=== PATIENT | male | born 1970 | race Caucasian/White ===

== ENCOUNTER 2021-01-02 08:34 | Emergency (ER) | payer SELFPAY ==
[~2021-01-02] VITALS: Ht 182.9 cm; Wt 75.0 kg
[2021-01-02] MEDS ORDERED: OLANZAPINE 10 MG/VIAL IM STA (08:43)
[2021-01-02 10:48] LABS: BASOPHILS % 0.2 % (0.0-2.0); HEMATOCRIT. 37.6 % (42.0-52.0); HEMOGLOBIN. 12.4 g/dL (14.0-18.0); LYMPHOCYTES % 7.3 % (20.0-50.0); MEAN CORPUSCULAR HEMOGLOBIN 26.3 pg (28.0-32.0); MEAN CORPUSCULAR VOLUME 79.6 fL (80.0-94.0); MEAN PLATELET VOLUME 9.2 fl (7.4-10.4); MONOCYTES % 6.9 % (2.0-8.0); NEUTROPHILS % 85.6 % (40.0-76.0); PLATELET 474 x1000/uL (130-400); RED BLOOD CELL COUNT 4.72 mill/uL (4.7-6.1); RED CELL DISTRIBUTION WIDTH 16.1 % (11.6-14.6)
[2021-01-02 10:55] LABS: CHLORIDE 111 mEq/L (98-107)
[2021-01-02 11:03] LABS: ETHANOL BLOOD < 10 mg/dL
[2021-01-02] MEDS ORDERED: LORAZEPAM 2MG/ML CPJ IM STA (11:47)
[2021-01-02] MEDS ORDERED: SODIUM CHLORIDE 0.9% 1,000 ML IV ONE (12:15)
[2021-01-02 13:16] LABS: CLARITY URINE CLOUDY (CLEAR); COLOR URINE YELLOW (YELLOW); KETONES URINE 1+ (NEGATIVE); LEUKOCYTE ESTERASE URINE NEGATIVE (NEGATIVE); NITRITE URINE NEGATIVE (NEGATIVE); OCCULT BLOOD URINE 1+ (NEGATIVE); PROTEIN URINE 1+ (NEGATIVE); SPECIFIC GRAVITY URINE 1.024 (1.005-1.030)
[2021-01-02 14:19] LABS: *AMPHETAMINES SCREEN URINE PRESUMTIVE POSITIVE (NEGATIVE); *BARBITURATES SCREEN URINE NEGATIVE (NEGATIVE); *BENZODIAZEPINES SCREEN URINE NEGATIVE (NEGATIVE); *COCAINE SCREEN URINE NEGATIVE (NEGATIVE); CANNABINOID URINE SCREEN PRESUMTIVE POSITIVE (NEGATIVE); METHADONE URINE SCREEN NEGATIVE (NEGATIVE); OPIATES URINE SCREEN NEGATIVE (NEGATIVE)
[2021-01-02 14:20] LABS: PHENCYCLIDINE URINE SCREEN NEGATIVE (NEGATIVE)
[2021-01-03] MEDS ORDERED: NALO4SPR BOTHNSTRLS (04:55)
[2021-01-03 05:01] VITALS: BP 105/55
== END 2021-01-03 05:02 | disposition home or self-care (01) ==
LOC: ER 08:40 → EDBD 08:40 → ER 01-03 05:02
DX: T43.621A Poisoning by amphetamines, accidental (unintentional), initial encounter (principal); T40.991A Poisoning by other psychodysleptics [hallucinogens], accidental (unintentional), initial encounter; T40.7X1A Poisoning by cannabis (derivatives), accidental (unintentional), initial encounter; F15.129 Other stimulant abuse with intoxication, unspecified; G92 Toxic encephalopathy; F16.129 Hallucinogen abuse with intoxication, unspecified; F12.129 Cannabis abuse with intoxication, unspecified; R46.2 Strange and inexplicable behavior; Y92.89 Other specified places as the place of occurrence of the external cause
CPT/HCPCS: 36415; 70450; 80053; 80305; 80320; 81003; 82962; 85025; 96360; 96372; 99285; J2060; J3490; J7030; Z7610; G0480